=== PATIENT | female | born 1985 | race Caucasian/White ===

== ENCOUNTER 2016-08-13 07:22 | Emergency (ER) | payer BC, MEDICAID ==
[~2016-08-13] VITALS: Ht 154.9 cm; Wt 60.8 kg
[~2016-08-13 07:22] MED LIST: IBUP400T OR; MOTR200T44 PO; PERCOCET PO; PRENTAB8 PO
[2016-08-13] MEDS ORDERED: TRI-TAB (07:59)
[2016-08-13] MEDS ORDERED: DEBR6.5S4 AS (09:41)
[2016-08-13 10:06] VITALS: BP 124/79
== END 2016-08-13 10:25 | disposition home or self-care (01) ==
LOC: M ED 09:11
DX: H61.22 Impacted cerumen, left ear (principal)

== ENCOUNTER 2025-01-17 18:33 | Emergency (ER) | payer MEDICARE, OTHER ==
[~2025-01-17] VITALS: Ht 154.9 cm; Wt 70.5 kg
[~2025-01-17 18:33] MED LIST changes: +DEBR6.5S4 AS; +IBUP600T42 PO; +MAGN200T PO; +TRI-TAB
[2025-01-17] MEDS ORDERED: IBUP200C28 PO (18:39)
[2025-01-17] MEDS ORDERED: ACET-683 PO (18:39)
[2025-01-17 19:08] LABS: KETONE, URINE AUTO RFX TRACE mg/dL (NEGATIVE); LEUKOCYTE ESTERASE UR AUTO RFX 1+ (NEGATIVE); MUCUS, URINE RFX SMALL (NEGATIVE); NITRITE, URINE AUTO RFX POSITIVE (NEGATIVE); RBC, URINE AUTO RFX 13 /HPF (0-3); SQUAM EPITHELIAL CELL UR AURFX 10 /HPF (0-6); TRANSITIONAL EPITHELIAL AU RFX <1 /HPF; WBC, URINE AUTO RFX 30 /HPF (0-3)
[2025-01-17] MEDS: NS (Normal Saline) 0.9% 1,000 ML IV ONE (19:10)
[2025-01-17] MEDS ORDERED: ISOVUE-370 76% 100 ML VIAL As Ordered ONE (19:15)
[2025-01-17] MEDS: ONDANSETRON 4MG 2ML VIAL IV ONE (19:41)
[2025-01-17] MEDS: MORPHINE 2 MG/ML 1 ML VIAL IV ONE (19:42)
[2025-01-17 19:43] LABS: BASO # 0.0 10^3/uL (0.0-0.2); BASO % 0.3 % (0.0-1.0); EOS # 0.1 10^3/uL (0.0-0.5); EOS % 0.6 % (0.0-3.0); LYMPH # 0.9 10^3/uL (1.5-5.0); LYMPH % 7.3 % (24.0-44.0); MONO # 0.2 10^3/uL (0.0-0.8); MONO % 1.6 % (2.0-8.0); NEUTROPHILS # 11.4 10^3/uL (1.5-8.5); NEUTROPHILS % 89.9 % (36.0-66.0); PLATELET COUNT, AUTOMATED 383 10^3/uL (150-450)
[2025-01-17 20:11] LABS: ALT/SGPT 24.0 U/L (7.0-40); AST/SGOT 22.0 U/L (<34)
[2025-01-17] MEDS: KETOROLAC 30 MG/ML 1 ML VIAL IV ONE (20:26)
[2025-01-17] MEDS: cefTRIAXone SOD 1 GM in DEXTROSE 5% (D5W) ADV/MINI-BAG 50 ML IV ONE (21:03)
[2025-01-17] MEDS ORDERED: PERC5TAB12 PO (21:27)
[2025-01-17] MEDS ORDERED: KETO-204 PO (21:27)
[2025-01-17] MEDS ORDERED: CEFD1CAP9 PO (21:27)
[2025-01-17] MEDS ORDERED: TAMS-18 PO (21:27)
[2025-01-17] MEDS: OXYCODONE/APAP 5MG/325MG(HOME DOSE PACK) PO ONE (21:30)
[2025-01-17 21:54] VITALS: BP 120/78; TEMP 98; O2SAT 98
== END 2025-01-17 21:57 | disposition home or self-care (01) ==
LOC: M ED 18:33
DX: N39.0 Urinary tract infection, site not specified (principal); N20.1 Calculus of ureter; J45.909 Unspecified asthma, uncomplicated; F17.290 Nicotine dependence, other tobacco product, uncomplicated; Z79.899 Other long term (current) drug therapy
CPT/HCPCS: 74177; 80047; 80076; 81001; 83605; 83690; 85025; 87088; 87186; 96361; 96365; 96375; 99284; J0696; J1885; J2405; Q9967

== ENCOUNTER → 2025-01-26 | Outpatient (REF) | payer OTHER ==
[~2025-01-26] MED LIST changes: +ACET-683 PO; +CEFD1CAP9 PO; +IBUP200C28 PO; +KETO-204 PO; +PERC5TAB12 PO; +TAMS-18 PO
[2025-01-26 21:01] LABS: APPEARANCE, URINE HAZY (CLEAR); BACTERIA, URINE AUTO 1+ (NEGATIVE); BILIRUBIN, URINE AUTO NEGATIVE (NEGATIVE); BLOOD, URINE BLOOD 2+ (NEGATIVE); GLUCOSE, URINE (UA) AUTO NEGATIVE (NEGATIVE); KETONE, URINE AUTO TRACE mg/dL (NEGATIVE); LEUKOCYTE ESTERASE, URINE AUTO 2+ (NEGATIVE); NITRITE, URINE AUTO NEGATIVE (NEGATIVE); PROTEIN, URINE AUTO NEGATIVE (NEGATIVE); RBC, URINE AUTO 4 /HPF (0-3); SPECIFIC GRAVITY URINE AUTO 1.013 (1.002-1.035); SQUAMOUS EPITHELIAL CELL UR AU 3 /HPF (0-6); UROBILINOGEN, URINE AUTO 2.0 mg/dL (0.0-2.0); WBC, URINE AUTO 31 /HPF (0-3)
== END ==
LOC: M LAB REF 20:24
PROVIDERS: ATTEND Physician Assistant
DX: N39.0 Urinary tract infection, site not specified (principal)

== ENCOUNTER 2025-02-05 09:09 | Inpatient (IN) | payer OTHER ==
[~2025-02-05] VITALS: Ht 154.9 cm; Wt 68.1 kg
[2025-02-05] MEDS: NICOTINE 14 MG/24 HR TRANSDERMAL TD SCH (09:00)
[2025-02-05 10:38] LABS: KETONE, URINE AUTO RFX NEGATIVE (NEGATIVE); LEUKOCYTE ESTERASE UR AUTO RFX 2+ (NEGATIVE); NITRITE, URINE AUTO RFX POSITIVE (NEGATIVE); RBC, URINE AUTO RFX 29 /HPF (0-3); SQUAM EPITHELIAL CELL UR AURFX 17 /HPF (0-6); WBC, URINE AUTO RFX TNTC /HPF (0-3)
[2025-02-05 11:28] LABS: ALT/SGPT 25.0 U/L (7.0-40); AST/SGOT 41.0 U/L (<34); CALCIUM LEVEL 8.6 MG/DL (8.5-10.1); CARBON DIOXIDE LEVEL 23.0 MMOL/L (20-31); CHLORIDE LEVEL 103.0 MMOL/L (98-107); CREATININE FOR GFR 1.09 MG/DL (0.55-1.30); GLOMERULAR FILTRATION RATE 67.1 (>60); POTASSIUM SERUM 4.6 MMOL/L (3.5-5.1); SODIUM LEVEL 139.0 MMOL/L (136-145)
[2025-02-05 12:55] LABS: PLATELET COUNT, AUTOMATED 502 10^3/uL (150-450)
[2025-02-05] MEDS: NS (Normal Saline) 0.9% 1,000 ML IV ONE (13:07)
[2025-02-05] MEDS: KETOROLAC 30 MG/ML 1 ML VIAL IV ONE (13:08)
[2025-02-05 13:16] LABS: INR 1.14
[2025-02-05 13:25] LABS: BASOPHILS 1 % (0-1); LYMPHOCYTES 3 % (16-44); MONOCYTES 2 % (0-5); NEUTROPHILS 93 % (28-66); PLATELET ESTIMATE INCREASED (NORMAL)
[2025-02-05] MEDS: cefTRIAXone SOD 1 GM in DEXTROSE 5% (D5W) ADV/MINI-BAG 50 ML IV ONE (14:18)
[2025-02-05] MEDS ORDERED: HOME MED LIST COMPLETE! XX SCH (14:20)
[2025-02-05 16:38] LABS: IRON (FE) < 5 UG/DL (50-170); PERCENT SATURATION 2.1 % (13.2-45.0)
[2025-02-05 16:41] LABS: VITAMIN B12 LEVEL 500 PG/ML (211-911)
[2025-02-05] MEDS: PIPERACILLIN/TAZOBACTAM SOD 3.375 GM in DEXTROSE 5% (D5W) ADV/MINI-BAG 50 ML IV SCH (16:43)
[2025-02-05 17:08] LABS: INR 1.17
[2025-02-05 17:13] LABS: ESTIMATED AVERAGE GLUCOSE 108.0 MG/DL (60-110)
[2025-02-05] MEDS: NS (Normal Saline) 0.9% 1,000 ML IV SCH (17:32)
[2025-02-05] MEDS: MORPHINE 2 MG/ML 1 ML VIAL IV PRN (17:32)
[2025-02-05 18:30] VITALS: BP 129/60; TEMP 98.4; O2SAT 100
[2025-02-05] MEDS ORDERED: MORPHINE 4 MG/ML 1 ML VIAL IV PRN (18:30)
[2025-02-05 19:33] VITALS: BP 101/59; TEMP 99.8; O2SAT 96
[2025-02-05] MEDS: KETOROLAC 30 MG/ML 1 ML VIAL IV PRN (19:48)
[2025-02-05] MEDS: ACETAMINOPHEN 325 MG TAB PO PRN (21:31)
[2025-02-06 03:13] VITALS: BP 93/57; TEMP 98.6; O2SAT 100
[2025-02-06 06:18] LABS: PLATELET COUNT, AUTOMATED 434 10^3/uL (150-450)
[2025-02-06 06:39] LABS: ALT/SGPT 13.0 U/L (7.0-40); AST/SGOT 9.0 U/L (<34); CALCIUM LEVEL 7.5 MG/DL (8.5-10.1); CARBON DIOXIDE LEVEL 22.0 MMOL/L (20-31); CHLORIDE LEVEL 108.0 MMOL/L (98-107); CREATININE FOR GFR 0.98 MG/DL (0.55-1.30); GLOMERULAR FILTRATION RATE 76.2 (>60); POTASSIUM SERUM 3.4 MMOL/L (3.5-5.1); SODIUM LEVEL 142.0 MMOL/L (136-145)
[2025-02-06] MEDS: TAMSULOSIN 0.4 MG CAP PO SCH (07:52)
[2025-02-06] MEDS: KCL 10MEQ/100ML SWI (KRUN) 10 MEQ in IV 1 EA IV SCH (08:48)
[2025-02-06] MEDS ORDERED: LIDOCAINE 2% 100 MG/5 ML SDV (FOR ANES.) As Ordered ONE (10:57)
[2025-02-06] MEDS ORDERED: MIDAZOLAM INJ 2 MG/2 ML VIAL As Ordered ONE (10:58)
[2025-02-06] MEDS: ISOVUE-300 61% 100 ML VIAL As Ordered ONE (10:59)
[2025-02-06] MEDS ORDERED: dexAMETHasone 4 MG/ML 1 ML VIAL As Ordered ONE (11:39)
[2025-02-06] MEDS ORDERED: KETOROLAC 30 MG/ML 1 ML VIAL As Ordered ONE (11:39)
[2025-02-06] MEDS ORDERED: ONDANSETRON 4MG/2ML VIAL As Ordered ONE (11:39)
[2025-02-06 12:35] VITALS: BP 105/55; TEMP 97.3; O2SAT 99
[2025-02-06 13:30] VITALS: BP 100/62; TEMP 97.3; O2SAT 100
[2025-02-06] MEDS: PHENAZOPYRIDINE 100 MG TAB PO SCH (13:45)
[2025-02-06] MEDS: POTASSIUM CHLORIDE 10MEQ SR TABLET PO ONE (16:17)
[2025-02-06 19:38] VITALS: BP 109/61; TEMP 97.5; O2SAT 96
[2025-02-07 03:27] VITALS: BP 104/51; TEMP 97.1; O2SAT 94
[2025-02-07 05:49] LABS: BASO # 0.0 10^3/uL (0.0-0.2); BASO % 0.2 % (0.0-1.0); EOS # 0.0 10^3/uL (0.0-0.5); EOS % 0.0 % (0.0-3.0); LYMPH # 1.2 10^3/uL (1.5-5.0); LYMPH % 9.3 % (24.0-44.0); MONO # 0.6 10^3/uL (0.0-0.8); MONO % 4.7 % (2.0-8.0); NEUTROPHILS # 11.0 10^3/uL (1.5-8.5); NEUTROPHILS % 84.0 % (36.0-66.0); PLATELET COUNT, AUTOMATED 477 10^3/uL (150-450)
[2025-02-07 06:24] LABS: CALCIUM LEVEL 8.0 MG/DL (8.5-10.1); CARBON DIOXIDE LEVEL 22 MMOL/L (20-31); CHLORIDE LEVEL 112 MMOL/L (98-107); CREATININE FOR GFR 0.83 MG/DL (0.55-1.30); GLOMERULAR FILTRATION RATE > 90.0 (>60); POTASSIUM SERUM 4.4 MMOL/L (3.5-5.1); SODIUM LEVEL 144 MMOL/L (136-145)
[2025-02-07] MEDS ORDERED: METR-265 PO (10:36)
[2025-02-07] MEDS ORDERED: CEFP200T PO (10:36)
== END 2025-02-07 11:02 | disposition home or self-care (01) | DRG 854 ==
LOC: M ED 09:09 → M ED INP 09:10 → M MS4PR 18:27 → OBSVTOIN 02-06 11:06
PROVIDERS: ADMIT Internal Medicine; ATTEND Internal Medicine
PROC: 0T778DZ Dilation of Left Ureter with Intraluminal Device, Via Natural or Artificial Opening Endoscopic (ICD-10-PCS; principal; 2025-02-06 10:45)
DX: A41.9 Sepsis, unspecified organism (principal); N13.6 Pyonephrosis; B96.20 Unspecified Escherichia coli [E. coli] as the cause of diseases classified elsewhere; F17.290 Nicotine dependence, other tobacco product, uncomplicated; R73.9 Hyperglycemia, unspecified; D50.9 Iron deficiency anemia, unspecified; Z88.1 Allergy status to other antibiotic agents; Z88.8 Allergy status to other drugs, medicaments and biological substances; K52.9 Noninfective gastroenteritis and colitis, unspecified; E87.6 Hypokalemia

== ENCOUNTER → 2025-02-19 | Outpatient (REF) | payer OTHER ==
[~2025-02-19] MED LIST changes: +CEFP200T PO; +METR-265 PO
[2025-02-19 16:57] LABS: BASO # 0.1 10^3/uL (0.0-0.2); BASO % 1.0 % (0.0-1.0); EOS # 0.1 10^3/uL (0.0-0.5); EOS % 1.7 % (0.0-3.0); LYMPH # 2.6 10^3/uL (1.5-5.0); LYMPH % 32.4 % (24.0-44.0); MONO # 0.7 10^3/uL (0.0-0.8); MONO % 8.6 % (2.0-8.0); NEUTROPHILS # 4.5 10^3/uL (1.5-8.5); NEUTROPHILS % 55.9 % (36.0-66.0); PLATELET COUNT, AUTOMATED 535 10^3/uL (150-450)
[2025-02-19 17:02] LABS: IRON (FE) 53 UG/DL (50-170)
[2025-02-19 17:03] LABS: TOTAL 25(OH) VITAMIN D 33.5 NG/ML (20.0-100.0); VITAMIN B12 LEVEL 510 PG/ML (211-911)
[2025-02-19 17:07] LABS: ALT/SGPT 51 U/L (7.0-40); AST/SGOT 32 U/L (<34); CALCIUM LEVEL 9.4 MG/DL (8.5-10.1); CARBON DIOXIDE LEVEL 26 MMOL/L (20-31); CHLORIDE LEVEL 104 MMOL/L (98-107); CHOLESTEROL LEVEL 196 MG/DL (<200); CHOLESTEROL RISK RATIO 4.39 (<5); CREATININE FOR GFR 0.78 MG/DL (0.55-1.30); GLOMERULAR FILTRATION RATE > 90.0 (>60); LDL CHOLESTEROL 100.0 MG/DL (<100); NON-HDL-C 151.4 MG/DL; POTASSIUM SERUM 4.1 MMOL/L (3.5-5.1); SODIUM LEVEL 140 MMOL/L (136-145); TRIGLYCERIDES LEVEL 257 MG/DL (<150)
[2025-02-19 17:31] LABS: ESTIMATED AVERAGE GLUCOSE 111.0 MG/DL (60-110)
== END ==
LOC: M LAB REF 16:22
PROVIDERS: ATTEND Student in an Organized Health Care Education/Training Program
DX: E55.9 Vitamin D deficiency, unspecified (principal); Z68.27 Body mass index [BMI] 27.0-27.9, adult; D50.9 Iron deficiency anemia, unspecified

== ENCOUNTER → 2025-02-26 | Outpatient (REF) | payer OTHER ==
[~2025-02-26] MED LIST changes: +APAP500T10 PO
== END ==
LOC: M SMT 16:49
PROVIDERS: ATTEND Urology
DX: N20.1 Calculus of ureter (principal)

== ENCOUNTER → 2025-03-02 | Outpatient (CLI) | payer OTHER ==
[~2025-03-02] MED LIST changes: +MACR100C43 PO; +OXYB5TAB14 PO; +PYRI1TAB5 PO
== END ==
LOC: M PLAIMG 13:23
PROVIDERS: ATTEND Student in an Organized Health Care Education/Training Program
DX: K52.9 Noninfective gastroenteritis and colitis, unspecified (principal); N20.0 Calculus of kidney; Z96.0 Presence of urogenital implants

== ENCOUNTER 2025-03-05 13:21 | Day surgery (SDC) | payer OTHER ==
[~2025-03-05] VITALS: Ht 154.9 cm; Wt 66.4 kg
[~2025-03-05 13:21] MED LIST changes: -MACR100C43 PO; -OXYB5TAB14 PO; -PYRI1TAB5 PO
[2025-03-05] MEDS ORDERED: LR 1,000 ML IV SCH ×2 (13:50→16:20)
[2025-03-05] MEDS ORDERED: MIDAZOLAM INJ 2 MG/2 ML VIAL As Ordered ONE (14:41)
[2025-03-05] MEDS ORDERED: dexAMETHasone 4 MG/ML 1 ML VIAL As Ordered ONE (14:42)
[2025-03-05] MEDS ORDERED: KETOROLAC 30 MG/ML 1 ML VIAL As Ordered ONE (14:42)
[2025-03-05] MEDS ORDERED: ONDANSETRON 4MG/2ML VIAL As Ordered ONE (14:42)
[2025-03-05] MEDS ORDERED: LIDOCAINE 2% 100 MG/5 ML SDV (FOR ANES.) As Ordered ONE (14:42)
[2025-03-05] MEDS ORDERED: ACETAMINOPHEN 1000MG/100ML IV BAG As Ordered ONE (15:12)
[2025-03-05] MEDS: ceFAZolin SOD 2 GM IV ONCE IV ONE (15:30)
[2025-03-05] MEDS ORDERED: dexmedeTOMIDine (4 MCG/ML) 200 MCG/50 ML BTL As Ordered ONE (15:38)
[2025-03-05] MEDS: ISOVUE-300 61% 100 ML VIAL As Ordered ONE (16:04)
[2025-03-05] MEDS ORDERED: OXYB5TAB14 PO (16:13)
[2025-03-05] MEDS ORDERED: MACR100C43 PO (16:13)
[2025-03-05] MEDS ORDERED: PYRI1TAB5 PO (16:13)
[2025-03-05] MEDS ORDERED: HYDROMORPHONE HCL 0.5 MG/0.5 ML SYRINGE IV PRN (16:20)
[2025-03-05] MEDS ORDERED: ONDANSETRON 4MG/2ML VIAL IV PRN (16:20)
[2025-03-05 17:35] VITALS: BP 107/57; TEMP 98.5; O2SAT 98
== END 2025-03-05 17:50 | disposition home or self-care (01) ==
LOC: M SDC 13:21
PROVIDERS: ATTEND Urology
DX: N20.1 Calculus of ureter (principal); J45.909 Unspecified asthma, uncomplicated; K42.9 Umbilical hernia without obstruction or gangrene; Z87.891 Personal history of nicotine dependence; Z86.19 Personal history of other infectious and parasitic diseases; Z98.51 Tubal ligation status; Z88.1 Allergy status to other antibiotic agents; Z88.8 Allergy status to other drugs, medicaments and biological substances
CPT/HCPCS: 52356; 74420; 82365; C1769; C1894; C2617; J0131; J0688; J1100; J1885; J2250; J2405; J3010